=== PATIENT | female | born 1945 | race Hispanic/Latino ===

== ENCOUNTER 2018-12-27 01:29 | Emergency (ER) | payer MEDICARE ==
[2018-12-27 02:37] LABS: Bilirubin,Urine NEG (Negative); Color,Urine Colorless (Yellow)
[2018-12-27 02:38] LABS: Blood,Urine NEG (Negative); Protein,Urine <15 mg/dL mg/dL (Negative); Urobilinogen,Urine < 2.0 mg/dL (<2.0)
[2018-12-27] MEDS ORDERED: NACL 0.9% 500 ML 500 ML IV ONE (02:41)
--- NOTE | 2018-12-27 02:42 | Emergency Department Report ---
ED General Adult HPI - General Chief complaint: Chest Pain Stated complaint: CHEST PAIN Time Seen by Provider: 12/27/18 02:34 Source: patient, EMS (ems notes not available at time of chart dictation), RN notes reviewed, old records reviewed Mode of arrival: Ambulatory Limitations: No Limitations - History of Present Illness Initial comments: Primary care Dr.: Dr. Neela Vera Pulmonology: Dr. Bertrand This is a 73-year-old female, history of arthritis, chronic pain, COPD, on home oxygen, who is brought to the hospital by emergency medical services for resolved supraventricular tachycardia/atrial fibrillation, and hypotension, now resolved. The patient contacted 911 because she felt like her heart was racing, and felt generally weak. Apparently, in the field, patient was found to be in A. fib, with RVR, with a rate of approximately 150 bpm This resolved on its own. The patient has no complaints at this time. She denies headache, chest pain, abdominal pain. She has chronic shortness of breath. She denies focal extremity weakness or numbness. She denies urinary symptoms. She's not had A. fib in the past, as far she is recalled. She has chronic neck pain. This is not new, worsening or different. The patient reports that she feels thirsty. She reports that she feels like she is back to her baseline. 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 -: Sudden Severity scale (0 -10): 1 Consistency: now resolved Improves with: none Worsens with: none - Related Data Home Medications Medication Instructions Recorded Confirmed Last Taken Albuterol Sulfate [Albuterol 0.63%] 08/25/13 08/25/13 Unknown Aspirin [Aspirin BABY CHEW TAB] 81 mg PO QDAY 08/25/13 08/26/13 Unknown Escitalopram Oxalate [Lexapro] 20 mg PO QDAY 08/25/13 08/26/13 Unknown HYDROcodone/ACETAMINOPHEN 10 - 325 mg PO TID 08/25/13 08/26/13 Unknown [Hydrocodon-Acetamin 7.5-325/15] amLODIPine [Norvasc] 5 mg PO QDAY 08/25/13 08/26/13 Unknown Previous Rx's Medication Instructions Recorded Last Taken Type Prednisone 20 mg PO QDAY #7 tablet 09/02/13 Unknown Rx levoFLOXacin [Levaquin] 750 mg PO QDAY #7 tablet 09/02/13 Unknown Rx Aspirin [Aspirin TAB] 325 mg PO QDAY #30 tablet 12/27/18 Unknown Rx Potassium Chloride 20 meq PO BID #30 packet 12/27/18 Unknown Rx Allergies Allergy/AdvReac Type Severity Reaction Status Date / Time No Known Allergies Allergy Verified 08/25/13 22:49 ED Review of Systems ROS: Stated complaint: CHEST PAIN Other details as noted in HPI Constitutional: malaise. denies: fever Eyes: denies: eye discharge ENT: denies: epistaxis Respiratory: shortness of breath (chronic shortness of breath) Cardiovascular: palpitations Gastrointestinal: denies: vomiting Genitourinary: denies: dysuria Musculoskeletal: arthralgia (chronic) Neurological: weakness (now resolved) Psychiatric: anxiety ED Past Medical Hx - Past Medical History Previous Medical History?: Yes Hx Hypertension: Yes Hx COPD: Yes - Surgical History Past Surgical History?: No - Social History Smoking Status: Unknown if ever smoked - Medications Home Medications: Home Medications Medication Instructions Recorded Confirmed Last Taken Type Albuterol Sulfate [Albuterol 0.63%] 08/25/13 08/25/13 Unknown History Aspirin [Aspirin BABY CHEW TAB] 81 mg PO QDAY 08/25/13 08/26/13 Unknown History Escitalopram Oxalate [Lexapro] 20 mg PO QDAY 08/25/13 08/26/13 Unknown History HYDROcodone/ACETAMINOPHEN 10 - 325 mg PO TID 08/25/13 08/26/13 Unknown History [Hydrocodon-Acetamin 7.5-325/15] amLODIPine [Norvasc] 5 mg PO QDAY 08/25/13 08/26/13 Unknown History Prednisone 20 mg PO QDAY #7 tablet 09/02/13 Unknown Rx levoFLOXacin [Levaquin] 750 mg PO QDAY #7 tablet 09/02/13 Unknown Rx Aspirin [Aspirin TAB] 325 mg PO QDAY #30 tablet 12/27/18 Unknown Rx Potassium Chloride 20 meq PO BID #30 packet 12/27/18 Unknown Rx ED Physical Exam - General Limitations: No Limitations General appearance: alert, anxious - Head Head exam: Present: atraumatic, normocephalic - Eye Eye exam: Present: normal appearance, EOMI. Absent: nystagmus - ENT ENT exam: Present: normal exam, normal orophraynx, mucous membranes moist, normal external ear exam - Neck Neck exam: Present: normal inspection, full ROM. Absent: tenderness, m eningismus - Respiratory Respiratory exam: Present: normal lung sounds bilaterally. Absent: respiratory distress - Cardiovascular Cardiovascular Exam: Present: regular rate, normal rhythm, normal heart sounds. Absent: bradycardia, tachycardia, irregular rhythm, systolic murmur, diastolic murmur, rubs, gallop - GI/Abdominal GI/Abdominal exam: Present: soft. Absent: distended, tenderness, guarding, rebound, rigid, pulsatile mass - Extremities Exam Extremities exam: Present: normal inspection, full ROM, other (2+ pulses noted in the bilateral upper, lower extremities. Compartments soft. No long bony tenderness. The pelvis is stable.). Absent: calf tenderness - Back Exam Back exam: Present: normal inspection, full ROM. Absent: tenderness, CVA tenderness (R), paraspinal tenderness, vertebral tenderness - Neurological Exam Neurological exam: Present: alert, other (Extraocular movements intact. Tongue midline. No facial droop. Facial sensation intact to light touch in the V1, V2, V3 distribution bilaterally. 5 and 5 strength in 4 extremities.. Sensation is intact to light touch in 4 extremities.). Absent: motor sensory deficit - Psychiatric Psychiatric exam: Present: anxious - Skin Skin exam: Present: warm, dry, intact, normal color. Absent: rash ED Course Vital Signs 12/27/18 12/27/18 02:02 04:09 Temperature 99.1 F Pulse Rate 133 H 72 Respiratory 16 16 Rate Blood Pressure 97/62 121/65 [Right] O2 Sat by Pulse 93 93 Oximetry ED Medical Decision Making - Lab Data Result diagrams: 12/27/18 03:00 12/27/18 03:00 Vital Signs 12/27/18 12/27/18 02:02 04:09 Temperature 99.1 F Pulse Rate 133 H 72 Respiratory 16 16 Rate Blood Pressure 97/62 121/65 [Right] O2 Sat by Pulse 93 93 Oximetry Lab Results 12/27/18 12/27/18 12/27/18 Range/Units 02:20 03:00 03:00 WBC 6.1 (4.5-11.0) K/mm3 RBC 4.17 (3.65-5.03) M/mm3 Hgb 15.1 H (10.1-14.3) gm/dl Hct 42.7 (30.3-42.9) % MCV 102 H (79-97) fl MCH 36 H (28-32) pg MCHC 35 H (30-34) % RDW 12.3 L (13.2-15.2) % Plt Count 129 L (140-440) K/mm3 Sodium 142 (137-145) mmol/L Potassium 3.1 L (3.6-5.0) mmol/L Chloride 101.6 (98-107) mmol/L Carbon Dioxide 27 (22-30) mmol/L Anion Gap 17 mmol/L BUN 10 (7-17) mg/dL Creatinine 0.7 (0.7-1.2) mg/dL Estimated GFR > 60 ml/min BUN/Creatinine Ratio 14 % Glucose 94 (65-100) mg/dL Calcium 8.8 (8.4-10.2) mg/dL Magnesium 1.70 (1.7-2.3) mg/dL Total Creatine Kinase 71 (30-135) units/L TSH (0.270-4.200) mlU/mL Urine Color Colorless (Yellow) Urine Turbidity Clear (Clear) Urine pH 8.0 H (5.0-7.0) Ur Specific [place] 1.003 (1.003-1.030) Urine Protein <15 mg/dl (Negative) mg/dL Urine Glucose (UA) Neg (Negative) mg/dL Urine Ketones Neg (Negative) mg/dL Urine Blood Neg (Negative) Urine Nitrite Neg (Negative) Urine Bilirubin Neg (Negative) Urine Urobilinogen < 2.0 (<2.0) mg/dL Ur Leukocyte Esterase Neg (Negative) Urine WBC (Auto) 2.0 (0.0-6.0) /HPF Urine RBC (Auto) 3.0 (0.0-6.0) /HPF 12/27/18 Range/Units 03:00 WBC (4.5-11.0) K/mm3 RBC (3.65-5.03) M/mm3 Hgb (10.1-14.3) gm/dl Hct (30.3-42.9) % MCV (79-97) fl MCH (28-32) pg MCHC (30-34) % RDW (13.2-15.2) % Plt Count (140-440) K/mm3 Sodium (137-145) mmol/L Potassium (3.6-5.0) mmol/L Chloride (98-107) mmol/L Carbon Dioxide (22-30) mmol/L Anion Gap mmol/L BUN (7-17) mg/dL Creatinine (0.7-1.2) mg/dL Estimated GFR ml/min BUN/Creatinine Ratio % Glucose (65-100) mg/dL Calcium (8.4-10.2) mg/dL Magnesium (1.7-2.3) mg/dL Total Creatine Kinase (30-135) units/L TSH 4.520 H (0.270-4.200) mlU/mL Urine Color (Yellow) Urine Turbidity (Clear) Urine pH (5.0-7.0) Ur Specific [place] (1.003-1.030) Urine Protein (Negative) mg/dL Urine Glucose (UA) (Negative) mg/dL Urine Ketones (Negative) mg/dL Urine Blood (Negative) Urine Nitrite (Negative) Urine Bilirubin (Negative) Urine Urobilinogen (<2.0) mg/dL Ur Leukocyte Esterase (Negative) Urine WBC (Auto) (0.0-6.0) /HPF Urine RBC (Auto) (0.0-6.0) /HPF - EKG Data -: EKG Interpreted by Mi EKG shows normal: sinus rhythm Rate: normal - Radiology Data Radiology results: report reviewed, image reviewed X-ray of the chest is negative for acute disease. - Medical Decision Making Differential diagnosis, including not limited to: Paroxysmal A. fib, resolved A. fib, thyroid derangement, pneumonia, urinary tract infection, electrolyte derangement Assessment and plan: 73-year-old female with prehospital EKG showing A. fib with RVR, now resolved. Patient is observed in the emergency room for 3 hours, without clinical decompensation. She is currently afebrile, with reassuring vital signs, does not appear to be in any acute distress. TSH slightly elevated. Also found to be slightly hypokalemic. Patient currently in sinus rhythm. We will start her on aspirin. We will start her on potassium supplementation. 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 fib, presumably, as well as nonspecific thyroid abnormalities, and hypokalemia. The patient at this point time is hemodynamically stable, and currently has not manifested an acute medically emergent condition in the emergency room that requires hospitalization. Critical care attestation.: If time is entered above; I have spent that time in minutes in the direct care of this critically ill patient, excluding procedure time. ED Disposition Clinical Impression: History of atrial fibrillation, Hypokalemia Disposition: - TO HOME OR SELFCARE Is pt being admited?: No Does the pt Need Aspirin: No Condition: Stable Instructions: Atrial Fibrillation (ED) Additional Instructions: Continue current outpatient medications. Take the aspirin as directed. Take the potassium supplementation as directed. Follow up with any illicit cardiology specialists for presumed paroxysmal atrial fibrillation within the next 7-10 days. Follow-up with the primary care doctor or straw hat washer operator to have potassium rechecked within the next 2 weeks. Nonspecific thyroid abnormalities were noted today while in the emergency room, please have your primary care doctor contact the medical records department to obtain [facility] medical records, and further evaluate these. Please return to the emergency room right away with new pain, worsened pain, migration of pain, projectile vomiting, change in mental status, confusion, recurrent palpitations, weakness, lightheadedness, inability to tolerate liquid feeds. Referrals: KE HARTLEY MD [Primary Care Provider] - 3-5 Days NEELA VERA MD [Staff Physician] - 3-5 Days GARY BARAJAS MD [Staff Physician] - 3-5 Days JULIAN SHUKLA MD [Staff Physician] - 3-5 Days
--- NOTE | 2018-12-27 03:10 | XRay Report ---
PROCEDURE: XR CHEST 1V AP TECHNIQUE: A portable upright view the chest was obtained. HISTORY: copd a fib COMPARISONS: None FINDINGS: The lungs are hyperinflated. There are no infiltrates or effusions. The lungs are not congested. The heart size is normal. The bones reveal arthritic changes of the left AC joint. There is an anchor sut ure in the right humeral head. IMPRESSION: COPD. No acute process in the chest.. This document is electronically signed by Eron Cee MD., December 27 2018 03:08:36 AM ET
[2018-12-27 03:53] LABS: Red Blood Count 4.17 M/mm3 (3.65-5.03)
[2018-12-27 03:54] LABS: Hematocrit 42.7 % (30.3-42.9); Hemoglobin 15.1 gm/dl (10.1-14.3); Mean Corpuscular HGB Conc 35 % (30-34); Mean Corpuscular Volume 102 fl (79-97); Platelet Count 129 K/mm3 (140-440); Red Cell Distribution Width 12.3 % (13.2-15.2)
[2018-12-27 04:00] LABS: BUN/Creatinine Ratio 14; Blood Urea Nitrogen 10 mg/dL (7-17); Calcium 8.8 mg/dL (8.4-10.2); Hemolysis Index 7
[2018-12-27 04:41] VITALS: BP 121/65
[2018-12-27] MEDS ORDERED: K-DUR PO ONE (04:46)
[2018-12-27] MEDS ORDERED: KCL 10MEQ/100ML 10 MEQ/100 ML BAG IV SCH (05:00)
== END 2018-12-27 05:45 | disposition home or self-care (01) ==
LOC: ED 01:29
DX: E87.6 Hypokalemia (principal); I48.91 Unspecified atrial fibrillation; I10 Essential (primary) hypertension; J44.9 Chronic obstructive pulmonary disease, unspecified; Z79.82 Long term (current) use of aspirin
CPT/HCPCS: 36415; 71045; 80048; 81001; 82550; 83735; 84439; 84443; 85027; 93005; 93010; 99285

== ENCOUNTER 2019-05-28 11:36 | Inpatient (IN) | payer MEDICARE ==
[2019-05-28] MEDS ORDERED: IBUPROFEN 800 MG TAB PO ONE (12:54)
[2019-05-28] MEDS ORDERED: CEFEPIME/NS 2 GM/100 ML 2 GM/100 ML BAG IV ONE (12:54)
[2019-05-28 13:03] LABS: Basophils % (Auto) 0.3 % (0.0-1.8); Eosinophils # (Auto) 0.2 K/mm3 (0.0-0.4); Eosinophils % (Auto) 4.3 % (0.0-4.3); Hematocrit 33.7 % (30.3-42.9); Lymphocytes # (Auto) 0.5 K/mm3 (1.2-5.4); Lymphocytes % (Auto) 11.1 % (13.4-35.0); Mean Corpuscular HGB Conc 33 % (30-34); Mean Corpuscular Volume 105 fl (79-97); Monocytes # (Auto) 0.3 K/mm3 (0.0-0.8); Monocytes % (Auto) 6.6 % (0.0-7.3); Platelet Count 137 K/mm3 (140-440); Red Blood Count 3.22 M/mm3 (3.65-5.03); Red Cell Distribution Width 15.7 % (13.2-15.2)
[2019-05-28 13:04] LABS: Bilirubin,Urine NEG (Negative); Blood,Urine NEG (Negative); Color,Urine Yellow (Yellow); Protein,Urine <15 mg/dL mg/dL (Negative); Urobilinogen,Urine < 2.0 mg/dL (<2.0)
[2019-05-28] MEDS ORDERED: SODIUM CHLORIDE 0.9% 1000 ML IV SOLN IV ONE (13:05)
[2019-05-28 13:10] LABS: Amphetamine Screen,Urine PRESUMPTIVE NEGATIVE; Benzodiazepines Screen,Urine PRESUMPTIVE NEGATIVE; Cocaine Screen,Urine PRESUMPTIVE NEGATIVE; Methadone Screen,Urine PRESUMPTIVE NEGATIVE; Opiate Screen,Urine PRESUMPTIVE NEGATIVE
[2019-05-28 13:15] LABS: INR 1.04 (0.87-1.13)
[2019-05-28 13:17] LABS: Partial Thromboplastin Time 30.3 Sec. (24.2-36.6)
--- NOTE | 2019-05-28 13:19 | Emergency Department Report ---
ED Altered Mental Status HPI - General Chief Complaint: Altered Mental Status Stated Complaint: AMS Time Seen by Provider: 05/28/19 12:04 Source: EMS Mode of arrival: Ambulatory Limitations: Altered Mental Status - History of Present Illness Initial Comments: 73-year-old female with history of COPD presents to ED with altered mental status. Family told EMS patient has been laying in bed all day and became confused. Family reports recent hip replacement surgery. Patient is alert, oriented to self only. Does not know the answers to any questions. Patient has no complaints. There is no family present at this time. MD Complaint: altered mental status -: This morning Consistency of Symptoms: constant - Related Data Home Medications Medication Instructions Recorded Confirmed Last Taken Escitalopram Oxalate [Lexapro] 20 mg PO QDAY 08/25/13 05/28/19 Unknown HYDROcodone/ACETAMINOPHEN 10 - 325 mg PO TID 08/25/13 05/28/19 Unknown [Hydrocodon-Acetamin 7.5-325/15] Albuterol Sulfate 90 mcg INHALATION DAILY PRN 05/28/19 05/28/19 Unknown Metoprolol 25 mg PO BID 05/28/19 05/28/19 Unknown Mirtazapine 7.5 mg PO HS 05/28/19 05/28/19 Unknown Pravastatin Sodium 40 mg PO DAILY 05/28/19 05/28/19 Unknown QUEtiapine 25 mg PO HS 05/28/19 05/28/19 Unknown Ranitidine HCl 150 mg PO BID 05/28/19 05/28/19 Unknown RisperiDONE 2 mg PO BID 05/28/19 05/28/19 Unknown Spironolactone 25 mg PO BID 05/28/19 05/28/19 Unknown Previous Rx's Medication Instructions Recorded Last Taken Type Aspirin 325 mg PO QDAY #30 tablet 12/27/18 Unknown Rx Potassium Chloride 20 meq PO BID #30 packet 12/27/18 Unknown Rx Allergies Allergy/AdvReac Type Severity Reaction Status Date / Time No Known Allergies Allergy Verified 08/25/13 22:49 ED Review of Systems ROS: Stated complaint: AMS Other details as noted in HPI Comment: Unobtainable due to pts medical conditions ED Past Medical Hx - Past Medical History Hx Hypertension: Yes Hx COPD: Yes - Surgical History Past Surgical History?: Yes - Social History Smoking Status: Current Every Day Smoker - Medications Home Medications: Home Medications Medication Instructions Recorded Confirmed Last Taken Type Escitalopram Oxalate [Lexapro] 20 mg PO QDAY 08/25/13 05/28/19 Unknown History HYDROcodone/ACETAMINOPHEN 10 - 325 mg PO TID 08/25/13 05/28/19 Unknown History [Hydrocodon-Acetamin 7.5-325/15] Aspirin 325 mg PO QDAY #30 tablet 12/27/18 05/28/19 Unknown Rx Potassium Chloride 20 meq PO BID #30 packet 12/27/18 05/28/19 Unknown Rx Albuterol Sulfate 90 mcg INHALATION DAILY PRN 05/28/19 05/28/19 Unknown History Metoprolol 25 mg PO BID 05/28/19 05/28/19 Unknown History Mirtazapine 7.5 mg PO HS 05/28/19 05/28/19 Unknown History Pravastatin Sodium 40 mg PO DAILY 05/28/19 05/28/19 Unknown History QUEtiapine 25 mg PO HS 05/28/19 05/28/19 Unknown History Ranitidine HCl 150 mg PO BID 05/28/19 05/28/19 Unknown History RisperiDONE 2 mg PO BID 05/28/19 05/28/19 Unknown History Spironolactone 25 mg PO BID 05/28/19 05/28/19 Unknown History ED Physical Exam - General Limitations: Altered Mental Status General appearance: alert, in no apparent distress - Head Head exam: Present: atraumatic, normocephalic - Eye Eye exam: Present: normal appearance, PERRL, EOMI. Absent: scleral icterus, conjunctival injection - ENT ENT exam: Present: mucous membranes moist - Neck Neck exam: Present: normal inspection - Respiratory Respiratory exam: Present: normal lung sounds bilaterally. Absent: respiratory distress - Cardiovascular Cardiovascular Exam: Present: regular rate, normal rhythm - GI/Abdominal GI/Abdominal exam: Present: soft. Absent: distended, tenderness - Extremities Exam Extremities exam: Present: other (healed scar present left hip; bruising to anterior lower left leg; abrasion present anterior lower right leg) - Neurological Exam Neurological exam: Present: alert, other (moves all extremities, able to state her name and date, no slurred speech noted, no facial droop present). Absent: oriented X3 (oriented to self only) - Psychiatric Psychiatric exam: Present: normal affect, normal mood - Skin Skin exam: Present: warm, dry, intact, normal color ED Course Vital Signs 05/28/19 05/28/19 05/28/19 11:49 12:01 12:06 Temperature 100.7 F H Pulse Rate 77 76 78 Respiratory 13 19 20 Rate Blood Pressure 68/38 74/48 Blood Pressure [Left] O2 Sat by Pulse 97 97 Oximetry 05/28/19 05/28/19 05/28/19 12:09 12:15 12:30 Temperature Pulse Rate 76 77 Respiratory 20 20 17 Rate Blood Pressure 74/48 120/61 Blood Pressure [Left] O2 Sat by Pulse 98 98 Oximetry 05/28/19 05/28/19 13:18 15:11 Temperature 99 F Pulse Rate 76 Respiratory 16 Rate Blood Pressure Blood Pressure 119/51 [Left] O2 Sat by Pulse 100 Oximetry - Reevaluation(s) Reevaluation #1: 05/28/19 13:30 Spoke w/ son over the phone. States 3 months ago patient underwent hip replacement surgery. States her hospital stay was complicated by encephalopathy thought to be due to her anesthesia. Patient was in and out of the hospital and rehabilitation facilities afterward. Patient was discharged home 6 weeks ago. Son states patient has basically gotten back to normal, so the plan in which she was about to start back driving. However, he states yesterday patient reported that she just didn't feel well. This morning she had decreased responsiveness, fever, and was confused. He reports patient has a history of COPD and a type of dementia. Reevaluation #2: 05/28/19 14:18 Daughter at bedside. Reports pt has been diagnosed with Wernicke's encephalopathy, liver cirrhosis secondary to ETOH abuse. States patient has not complained of anything specifically. States pt woke up this AM and urinated on the bathroom floor. States pt's mental status is much better currently, she has been having conversation with her. Earlier today prior to EMS call, pt was not speaking. Pt is currently able to answer more questions and tells me that she is currently in the hospital. BP improving. - Lab Data Result diagrams: 05/28/19 12:34 05/28/19 12:34 Lab Results 05/28/19 05/28/19 05/28/19 Range/Units 12:34 12:34 12:34 WBC 4.8 (4.5-11.0) K/mm3 RBC 3.22 L (3.65-5.03) M/mm3 Hgb 11.0 (10.1-14.3) gm/dl Hct 33.7 (30.3-42.9) % MCV 105 H (79-97) fl MCH 34 H (28-32) pg MCHC 33 (30-34) % RDW 15.7 H (13.2-15.2) % Plt Count 137 L (140-440) K/mm3 Lymph % (Auto) 11.1 L (13.4-35.0) % Grand % (Auto) 6.6 (0.0-7.3) % Eos % (Auto) 4.3 (0.0-4.3) % Baso % (Auto) 0.3 (0.0-1.8) % Lymph # 0.5 L (1.2-5.4) K/mm3 Grand # 0.3 (0.0-0.8) K/mm3 Eos # 0.2 (0.0-0.4) K/mm3 Baso # 0.0 (0.0-0.1) K/mm3 Seg Neutrophils % 77.7 H (40.0-70.0) % Seg Neutrophils # 3.7 (1.8-7.7) K/mm3 PT 13.3 (12.2-14.9) Sec. INR 1.04 (0.87-1.13) APTT 30.3 (24.2-36.6) Sec. Sodium 142 (137-145) mmol/L Potassium 4.5 (3.6-5.0) mmol/L Chloride 113.1 H (98-107) mmol/L Carbon Dioxide 22 (22-30) mmol/L Anion Gap 11 mmol/L BUN 14 (7-17) mg/dL Creatinine 0.5 L (0.7-1.2) mg/dL Estimated GFR > 60 ml/min BUN/Creatinine Ratio 28 % Glucose 104 H (65-100) mg/dL Lactic Acid (0.7-2.0) mmol/L Calcium 7.3 L (8.4-10.2) mg/dL Total Bilirubin 0.50 (0.1-1.2) mg/dL AST 30 (5-40) units/L ALT 14 (7-56) units/L Alkaline Phosphatase 120 (35-129) units/L Ammonia (25-60) umol/L Troponin T (0.00-0.029) ng/mL Total Protein 5.5 L (6.3-8.2) g/dL Albumin 2.7 L (3.9-5) g/dL Albumin/Globulin Ratio 1.0 % Urine Color (Yellow) Urine Turbidity (Clear) Urine pH (5.0-7.0) Ur Specific [address] (1.003-1.030) Urine Protein (Negative) mg/dL Urine Glucose (UA) (Negative) mg/dL Urine Ketones (Negative) mg/dL Urine Blood (Negative) Urine Nitrite (Negative) Urine Bilirubin (Negative) Urine Urobilinogen (<2.0) mg/dL Ur Leukocyte Esterase (Negative) Urine WBC (Auto) (0.0-6.0) /HPF Urine RBC (Auto) (0.0-6.0) /HPF U Epithel Cells (Auto) (0-13.0) /HPF Salicylates (2.8-20.0) mg/dL Urine Opiates Screen Urine Methadone Screen Acetaminophen (10.0-30.0) ug/mL Ur Barbiturates Screen Ur Phencyclidine Scrn Ur Amphetamines Screen U Benzodiazepines Scrn Urine Cocaine Screen U Marijuana (THC) Screen Drugs of Abuse Note Plasma/Serum Alcohol (0-0.07) % 05/28/19 05/28/19 05/28/19 Range/Units 12:34 12:34 12:34 WBC (4.5-11.0) K/mm3 RBC (3.65-5.03) M/mm3 Hgb (10.1-14.3) gm/dl Hct (30.3-42.9) % MCV (79-97) fl MCH (28-32) pg MCHC (30-34) % RDW (13.2-15.2) % Plt Count (140-440) K/mm3 Lymph % (Auto) (13.4-35.0) % Grand % (Auto) (0.0-7.3) % Eos % (Auto) (0.0-4.3) % Baso % (Auto) (0.0-1.8) % Lymph # (1.2-5.4) K/mm3 Grand # (0.0-0.8) K/mm3 Eos # (0.0-0.4) K/mm3 Baso # (0.0-0.1) K/mm3 Seg Neutrophils % (40.0-70.0) % Seg Neutrophils # (1.8-7.7) K/mm3 PT (12.2-14.9) Sec. INR (0.87-1.13) APTT (24.2-36.6) Sec. Sodium (137-145) mmol/L Potassium (3.6-5.0) mmol/L Chloride (98-107) mmol/L Carbon Dioxide (22-30) mmol/L Anion Gap mmol/L BUN (7-17) mg/dL Creatinine (0.7-1.2) mg/dL Estimated GFR ml/min BUN/Creatinine Ratio % Glucose (65-100) mg/dL Lactic Acid 1.70 (0.7-2.0) mmol/L Calcium (8.4-10.2) mg/dL Total Bilirubin (0.1-1.2) mg/dL AST (5-40) units/L ALT (7-56) units/L Alkaline Phosphatase (35-129) units/L Ammonia 38.0 (25-60) umol/L Troponin T < 0.010 (0.00-0.029) ng/mL Total Protein (6.3-8.2) g/dL Albumin (3.9-5) g/dL Albumin/Globulin Ratio % Urine Color (Yellow) Urine Turbidity (Clear) Urine pH (5.0-7.0) Ur Specific [address] (1.003-1.030) Urine Protein (Negative) mg/dL Urine Glucose (UA) (Negative) mg/dL Urine Ketones (Negative) mg/dL Urine Blood (Negative) Urine Nitrite (Negative) Urine Bilirubin (Negative) Urine Urobilinogen (<2.0) mg/dL Ur Leukocyte Esterase (Negative) Urine WBC (Auto) (0.0-6.0) /HPF Urine RBC (Auto) (0.0-6.0) /HPF U Epithel Cells (Auto) (0-13.0) /HPF Salicylates (2.8-20.0) mg/dL Urine Opiates Screen Urine Methadone Screen Acetaminophen (10.0-30.0) ug/mL Ur Barbiturates Screen Ur Phencyclidine Scrn Ur Amphetamines Screen U Benzodiazepines Scrn Urine Cocaine Screen U Marijuana (THC) Screen Drugs of Abuse Note Plasma/Serum Alcohol (0-0.07) % 05/28/19 05/28/19 05/28/19 Range/Units 12:34 12:34 12:34 WBC (4.5-11.0) K/mm3 RBC (3.65-5.03) M/mm3 Hgb (10.1-14.3) gm/dl Hct (30.3-42.9) % MCV (79-97) fl MCH (28-32) pg MCHC (30-34) % RDW (13.2-15.2) % Plt Count (140-440) K/mm3 Lymph % (Auto) (13.4-35.0) % Grand % (Auto) (0.0-7.3) % Eos % (Auto) (0.0-4.3) % Baso % (Auto) (0.0-1.8) % Lymph # (1.2-5.4) K/mm3 Grand # (0.0-0.8) K/mm3 Eos # (0.0-0.4) K/mm3 Baso # (0.0-0.1) K/mm3 Seg Neutrophils % (40.0-70.0) % Seg Neutrophils # (1.8-7.7) K/mm3 PT (12.2-14.9) Sec. INR (0.87-1.13) APTT (24.2-36.6) Sec. Sodium (137-145) mmol/L Potassium (3.6-5.0) mmol/L Chloride (98-107) mmol/L Carbon Dioxide (22-30) mmol/L Anion Gap mmol/L BUN (7-17) mg/dL Creatinine (0.7-1.2) mg/dL Estimated GFR ml/min BUN/Creatinine Ratio % Glucose (65-100) mg/dL Lactic Acid (0.7-2.0) mmol/L Calcium (8.4-10.2) mg/dL Total Bilirubin (0.1-1.2) mg/dL AST (5-40) units/L ALT (7-56) units/L Alkaline Phosphatase (35-129) units/L Ammonia (25-60) umol/L Troponin T (0.00-0.029) ng/mL Total Protein (6.3-8.2) g/dL Albumin (3.9-5) g/dL Albumin/Globulin Ratio % Urine Color (Yellow) Urine Turbidity (Clear) Urine pH (5.0-7.0) Ur Specific [address] (1.003-1.030) Urine Protein (Negative) mg/dL Urine Glucose (UA) (Negative) mg/dL Urine Ketones (Negative) mg/dL Urine Blood (Negative) Urine Nitrite (Negative) Urine Bilirubin (Negative) Urine Urobilinogen (<2.0) mg/dL Ur Leukocyte Esterase (Negative) Urine WBC (Auto) (0.0-6.0) /HPF Urine RBC (Auto) (0.0-6.0) /HPF U Epithel Cells (Auto) (0-13.0) /HPF Salicylates < 0.3 L (2.8-20.0) mg/dL Urine Opiates Screen Urine Methadone Screen Acetaminophen < 5.0 L (10.0-30.0) ug/mL Ur Barbiturates Screen Ur Phencyclidine Scrn Ur Amphetamines Screen U Benzodiazepines Scrn Urine Cocaine Screen U Marijuana (THC) Screen Drugs of Abuse Note Plasma/Serum Alcohol < 0.01 (0-0.07) % 05/28/19 05/28/19 Range/Units 12:40 12:40 WBC (4.5-11.0) K/mm3 RBC (3.65-5.03) M/mm3 Hgb (10.1-14.3) gm/dl Hct (30.3-42.9) % MCV (79-97) fl MCH (28-32) pg MCHC (30-34) % RDW (13.2-15.2) % Plt Count (140-440) K/mm3 Lymph % (Auto) (13.4-35.0) % Grand % (Auto) (0.0-7.3) % Eos % (Auto) (0.0-4.3) % Baso % (Auto) (0.0-1.8) % Lymph # (1.2-5.4) K/mm3 Grand # (0.0-0.8) K/mm3 Eos # (0.0-0.4) K/mm3 Baso # (0.0-0.1) K/mm3 Seg Neutrophils % (40.0-70.0) % Seg Neutrophils # (1.8-7.7) K/mm3 PT (12.2-14.9) Sec. INR (0.87-1.13) APTT (24.2-36.6) Sec. Sodium (137-145) mmol/L Potassium (3.6-5.0) mmol/L Chloride (98-107) mmol/L Carbon Dioxide (22-30) mmol/L Anion Gap mmol/L BUN (7-17) mg/dL Creatinine (0.7-1.2) mg/dL Estimated GFR ml/min BUN/Creatinine Ratio % Glucose (65-100) mg/dL Lactic Acid (0.7-2.0) mmol/L Calcium (8.4-10.2) mg/dL Total Bilirubin (0.1-1.2) mg/dL AST (5-40) units/L ALT (7-56) units/L Alkaline Phosphatase (35-129) units/L Ammonia (25-60) umol/L Troponin T (0.00-0.029) ng/mL Total Protein (6.3-8.2) g/dL Albumin (3.9-5) g/dL Albumin/Globulin Ratio % Urine Color Yellow (Yellow) Urine Turbidity Clear (Clear) Urine pH 8.0 H (5.0-7.0) Ur Specific [address] 1.013 (1.003-1.030) Urine Protein <15 mg/dl (Negative) mg/dL Urine Glucose (UA) Neg (Negative) mg/dL Urine Ketones Neg (Negative) mg/dL Urine Blood Neg (Negative) Urine Nitrite Neg (Negative) Urine Bilirubin Neg (Negative) Urine Urobilinogen < 2.0 (<2.0) mg/dL Ur Leukocyte Esterase Neg (Negative) Urine WBC (Auto) 2.0 (0.0-6.0) /HPF Urine RBC (Auto) 4.0 (0.0-6.0) /HPF U Epithel Cells (Auto) < 1.0 (0-13.0) /HPF Salicylates (2.8-20.0) mg/dL Urine Opiates Screen Presumptive negative Urine Methadone Screen Presumptive negative Acetaminophen (10.0-30.0) ug/mL Ur Barbiturates Screen Presumptive negative Ur Phencyclidine Scrn Presumptive negative Ur Amphetamines Screen Presumptive negative U Benzodiazepines Scrn Presumptive negative Urine Cocaine Screen Presumptive negative U Marijuana (THC) Screen Presumptive positive Drugs of Abuse Note Disclamer Plasma/Serum Alcohol (0-0.07) % - EKG Data -: EKG Interpreted by Me EKG shows normal: sinus rhythm, axis, intervals, QRS complexes, ST-T waves Rate: normal Interpretation: no acute changes - Radiology Data Radiology results: report reviewed, image reviewed - Medical Decision Making 73-year-old female with history of COPD, Wernicke encephalopathy, alcoholic liver cirrhosis presents to ED with fever and altered mental status. Patient was initially hypotensive, with BP is 68/38. Patient also had a low-grade fever of 100.7. Sepsis alert was called. Blood cultures drawn, cefepime given, IV fluids administered. Systolic BP currently in the 120s. Her mental status has improved, patient has more conversational and able to answer more questions appropriately. CT head is negative, chest x-ray is normal, UA is normal. Lactic acid is normal, ammonia level is normal. CO2 normal on ABG. Remainder of labs are also unremarkable. EKG is normal. Will admit to hospitalist, Dr Anderson, for further management. - Differential Diagnosis UTI, pneumonia, CO2 retention, hepatic encephalopathy, sepsis Critical Care Time: Yes Critical care time in (mins) excluding proc time.: 35 Critical care attestation.: If time is entered above; I have spent that time in minutes in the direct care of this critically ill patient, excluding procedure time. Critical Care Time: 35 minutes ED Disposition Clinical Impression: SIRS (systemic inflammatory response syndrome), Encephalopathy acute, Hypotension Disposition: OP ADMIT IP TO THIS HOSP Is pt being admited?: Yes Condition: Stable Referrals: ALBARO ARREDONDO [Primary Care Provider] - 3-5 Days Time of Disposition: 14:22
[2019-05-28 13:21] LABS: Alanine Aminotransferase 14 units/L (7-56); Albumin 2.7 g/dL (3.9-5); BUN/Creatinine Ratio 28; Blood Urea Nitrogen 14 mg/dL (7-17); Calcium 7.3 mg/dL (8.4-10.2); Hemolysis Index 10
--- NOTE | 2019-05-28 13:27 | Cat Scan Report ---
CT HEAD WITHOUT CONTRAST INDICATION / CLINICAL INFORMATION: ams. TECHNIQUE: All CT scans at this location are performed using CT dose reduction for ALARA by means of automated e xposure control. COMPARISON: None available. FINDINGS: HEMORRHAGE: No evidence of intracranial hemorrhage or extra-axial fluid collection. EXTRA-AXIAL SPACES: Cortical sulci and sylvian fissures are enlarged reflecting a degree of parenchym al volume loss which is within normal limits for the patient's age. Basilar cisterns have an unremark able appearance. VENTRICULAR SYSTEM: The third and lateral ventricles are enlarged reflecting resonance of age related parenchymal volume loss. CEREBRAL PARENCHYMA: Periventricular and deep white matter lucency is observed. This is probably seco ndary to microvascular ischemic change. There is no indication of recent infarction. No areas of ence phalomalacia are identified. MIDLINE SHIFT OR HERNIATION: There is no mass effect. CEREBELLUM / BRAINSTEM: Brainstem and cerebellum have an unremarkable appearance. INTRACRANIAL VESSELS: No abnormalities identified on noncontrast head CT. ORBITS: visualized portions of the orbits have an unremarkable appearance. SOFT TISSUES of HEAD: No significant abnormality. CALVARIUM: Evaluation of bone windows reveals no abnormalities. PARANASAL SINUSES / MASTOID AIR CELLS: Paranasal sinuses are free from inflammatory mucosal disease. Mastoid air cells are normally pneumatized. IMPRESSION: 1. Mild age-related involutional changes of parenchymal volume loss and microvascular ischemia. 2. No acute intracranial abnormality. Signer Name: Jessee Yanez MD Signed: 05/28/2019 1:23 PM Workstation Name: [id number]
[2019-05-28 13:30] LABS: Cannabinoid Screen,Urine PRESUMPTIVE POSITIVE
--- NOTE | 2019-05-28 14:07 | XRay Report ---
CHEST 1 VIEW 05/28/2019 12:15 PM INDICATION / CLINICAL INFORMATION: ams. COMPARISON: One view of the chest from 04/28/2019. FINDINGS: SUPPORT DEVICES: None. HEART / MEDIASTINUM: No significant abnormality. LUNGS / PLEURA: No significant pulmonary or pleural abnormality. No pneumothorax. ADDITIONAL FINDINGS: No significant additional findings. IMPRESSION: 1. No acute abnormality of the chest. Signer Name: Darryl Denney MD Signed: 05/28/2019 2:03 PM Workstation Name: [id number]
[2019-05-28] MEDS ORDERED: SODIUM CHLORIDE 0.9% 1000 ML 1,000 ML IV ONE (14:18)
--- NOTE | 2019-05-28 15:37 | History and Physical Report ---
History of Present Illness Date of examination: 05/28/19 Date of admission: 05/28/19 Chief complaint: Altered sensorium for 1 day History of present illness: 73-year-old female with history of encephalopathy and recent left total hip arthroplasty discharged recently. Patient was admitted in late February and discharged on May 02 after rehabilitation for left hip arthroplasty. During the hospital stay patient had severe confusion and Wernivke's encepha lopathy. Patient has been drinking moderately cardiovascular system regularly till February Last week. Patient is confused with altered sensorium since yesterday. Patient was hypotensive in the emergency room. No fever or chills. No shortness of breath. Patient on lactulose to prevent hepatic encephalopathy. No recent travel Past Medical History Hypertension: Yes COPD: Yes Etoh dependence. Surgical History Past Surgical History?: Yes Social History Smoking Status: Current Every Day Smoker Family History Htn Medications Home Medications: Home Medications Medication Instructions Recorded Confirmed Last Taken Type Escitalopram Oxalate [Lexapro] 20 mg PO QDAY 08/25/13 05/28/19 Unknown History HYDROcodone/ACETAMINOPHEN 10 - 325 mg PO TID 08/25/13 05/28/19 Unknown History [Hydrocodon-Acetamin 7.5-325/15] Aspirin 325 mg PO QDAY #30 tablet 12/27/18 05/28/19 Unknown Rx Potassium Chloride 20 meq PO BID #30 packet 12/27/18 05/28/19 Unknown Rx Albuterol Sulfate 90 mcg INHALATION DAILY PRN 05/28/19 05/28/19 Unknown History Metoprolol 25 mg PO BID 05/28/19 05/28/19 Unknown History Mirtazapine 7.5 mg PO HS 05/28/19 05/28/19 Unknown History Pravastatin Sodium 40 mg PO DAILY 05/28/19 05/28/19 Unknown History QUEtiapine 25 mg PO HS 05/28/19 05/28/19 Unknown History Ranitidine HCl 150 mg PO BID 05/28/19 05/28/19 Unknown History RisperiDONE 2 mg PO BID 05/28/19 05/28/19 Unknown History Spironolactone 25 mg PO BID 05/28/19 05/28/19 Unknown History Review of Systems ROS: Stated complaint: AMS Other details as noted in HPI Hypotensive in the emergency room Comment: Unobtainable due to pts medical conditions Medications and Allergies Allergies Allergy/AdvReac Type Severity Reaction Status Date / Time No Known Allergies Allergy Verified 08/25/13 22:49 Home Medications Medication Instructions Recorded Confirmed Last Taken Type Escitalopram Oxalate [Lexapro] 20 mg PO QDAY 08/25/13 05/28/19 Unknown History Aspirin 325 mg PO QDAY #30 tablet 12/27/18 05/28/19 Unknown Rx Potassium Chloride 20 meq PO BID #30 packet 12/27/18 05/28/19 Unknown Rx Albuterol Sulfate 90 mcg INHALATION DAILY PRN 05/28/19 05/28/19 Unknown History Furosemide [Lasix TAB] 40 mg PO BID 05/28/19 05/28/19 Unknown History Iron Fum,Ps/Folic/Bcomp,C No.9 1 each PO BID 05/28/19 05/28/19 1 Day Ago History [Folivane-Plus Capsule] ~05/27/19 Metoprolol 25 mg PO BID 05/28/19 05/28/19 Unknown History Mirtazapine 7.5 mg PO HS 05/28/19 05/28/19 Unknown History Pravastatin Sodium 40 mg PO DAILY 05/28/19 05/28/19 Unknown History QUEtiapine 25 mg PO HS 05/28/19 05/28/19 Unknown History Ranitidine HCl 150 mg PO BID 05/28/19 05/28/19 Unknown History RisperiDONE 2 mg PO BID 05/28/19 05/28/19 Unknown History Spironolactone 25 mg PO BID 05/28/19 05/28/19 Unknown History Umeclidinium Brm/Vilanterol Tr 1 each IH BID 05/28/19 05/28/19 1 Day Ago History [Anoro Ellipta 62.5-25 Mcg INH] ~05/27/19 Exam - Constitutional Vitals: Temp Pulse Resp BP Pulse Ox 99 F 76 16 119/51 100 05/28/19 13:18 05/28/19 15:11 05/28/19 15:11 05/28/19 15:11 05/28/19 15:11 General appearance: Present: no acute distress, well-nourished - EENT Eyes: Present: PERRL ENT: hearing intact, clear oral mucosa - Neck Neck: Present: supple, normal ROM - Respiratory Respiratory effort: normal Respiratory: bilateral: CTA - Cardiovascular Heart rate: 86 Rhythm: regular Heart Sounds: Present: S1 & S2. Absent: rub, click - Extremities Extremities: no ischemia, pulses intact, pulses symmetrical, No edema Peripheral Pulses: within normal limits - Abdominal General gastrointestinal: Present: soft, non-tender, distended (slightly distended), normal bowel sounds Female genitourinary: Present: normal - Integumentary Integumentary: Present: clear, warm, dry - Musculoskeletal Musculoskeletal: generalized weakness - Psychiatric Psychiatric: other (confused and lethargic) - Neurologic Neurologic: CNII-XII intact, moves all extremities - Allied Health Allied health notes reviewed: nursing, case management Results - Labs CBC & Chem 7: 05/28/19 12:34 05/28/19 12:34 Labs: Laboratory Last Values WBC 4.8 K/mm3 (4.5-11.0) 05/28/19 12:34 RBC 3.22 M/mm3 (3.65-5.03) L 05/28/19 12:34 Hgb 11.0 gm/dl (10.1-14.3) 05/28/19 12:34 Hct 33.7 % (30.3-42.9) 05/28/19 12:34 MCV 105 fl (79-97) H 05/28/19 12:34 MCH 34 pg (28-32) H 05/28/19 12:34 MCHC 33 % (30-34) 05/28/19 12:34 RDW 15.7 % (13.2-15.2) H 05/28/19 12:34 Plt Count 137 K/mm3 (140-440) L 05/28/19 12:34 Lymph % (Auto) 11.1 % (13.4-35.0) L 05/28/19 12:34 Patrick % (Auto) 6.6 % (0.0-7.3) 05/28/19 12:34 Eos % (Auto) 4.3 % (0.0-4.3) 05/28/19 12:34 Baso % (Auto) 0.3 % (0.0-1.8) 05/28/19 12:34 Lymph # 0.5 K/mm3 (1.2-5.4) L 05/28/19 12:34 Patrick # 0.3 K/mm3 (0.0-0.8) 05/28/19 12:34 Eos # 0.2 K/mm3 (0.0-0.4) 05/28/19 12:34 Baso # 0.0 K/mm3 (0.0-0.1) 05/28/19 12:34 Seg Neutrophils % 77.7 % (40.0-70.0) H 05/28/19 12:34 Seg Neutrophils # 3.7 K/mm3 (1.8-7.7) 05/28/19 12:34 PT 13.3 Sec. (12.2-14.9) 05/28/19 12:34 INR 1.04 (0.87-1.13) 05/28/19 12:34 APTT 30.3 Sec. (24.2-36.6) 05/28/19 12:34 Sodium 142 mmol/L (137-145) 05/28/19 12:34 Potassium 4.5 mmol/L (3.6-5.0) 05/28/19 12:34 Chloride 113.1 mmol/L (98-107) H 05/28/19 12:34 Carbon Dioxide 22 mmol/L (22-30) 05/28/19 12:34 11 mmol/L 05/28/19 12:34 BUN 14 mg/dL (7-17) 05/28/19 12:34 0.5 mg/dL (0.7-1.2) L 05/28/19 12:34 Estimated GFR > 60 ml/min 05/28/19 12:34 28 % 05/28/19 12:34 Glucose 104 mg/dL (65-100) H 05/28/19 12:34 Lactic Acid 1.70 mmol/L (0.7-2.0) 05/28/19 12:34 Calcium 7.3 mg/dL (8.4-10.2) L 05/28/19 12:34 0.50 mg/dL (0.1-1.2) 05/28/19 12:34 AST 30 units/L (5-40) 05/28/19 12:34 ALT 14 units/L (7-56) 05/28/19 12:34 120 units/L (35-129) 05/28/19 12:34 38.0 umol/L (25-60) 05/28/19 12:34 < 0.010 ng/mL (0.00-0.029) 05/28/19 12:34 5.5 g/dL (6.3-8.2) L 05/28/19 12:34 2.7 g/dL (3.9-5) L 05/28/19 12:34 1.0 % 05/28/19 12:34 Yellow (Yellow) 05/28/19 12:40 Clear (Clear) 05/28/19 12:40 8.0 (5.0-7.0) H 05/28/19 12:40 Ur Specific [place] 1.013 (1.003-1.030) 05/28/19 12:40 <15 mg/dl mg/dL (Negative) 05/28/19 12:40 Neg mg/dL (Negative) 05/28/19 12:40 Neg mg/dL (Negative) 05/28/19 12:40 Neg (Negative) 05/28/19 12:40 Neg (Negative) 05/28/19 12:40 Neg (Negative) 05/28/19 12:40 < 2.0 mg/dL (<2.0) 05/28/19 12:40 Ur Leukocyte Esterase Neg (Negative) 05/28/19 12:40 2.0 /HPF (0.0-6.0) 05/28/19 12:40 4.0 /HPF (0.0-6.0) 05/28/19 12:40 U Epithel Cells (Auto) < 1.0 /HPF (0-13.0) 05/28/19 12:40 Salicylates < 0.3 mg/dL (2.8-20.0) L 05/28/19 12:34 Presumptive negative 05/28/19 12:40 Presumptive negative 05/28/19 12:40 Acetaminophen < 5.0 ug/mL (10.0-30.0) L 05/28/19 12:34 Ur Barbiturates Screen Presumptive negative 05/28/19 12:40 Ur Phencyclidine Scrn Presumptive negative 05/28/19 12:40 Ur Amphetamines Screen Presumptive negative 05/28/19 12:40 U Benzodiazepines Scrn Presumptive negative 05/28/19 12:40 Presumptive negative 05/28/19 12:40 U Marijuana (THC) Screen Presumptive positive 05/28/19 12:40 Disclamer 05/28/19 12:40 Plasma/Serum Alcohol < 0.01 % (0-0.07) 05/28/19 12:34 Short CBC 05/28/19 Range/Units 12:34 WBC 4.8 (4.5-11.0) K/mm3 Hgb 11.0 (10.1-14.3) gm/dl Hct 33.7 (30.3-42.9) % Plt Count 137 L (140-440) K/mm3 BMP 05/28/19 12:34 Sodium 142 Potassium 4.5 Chloride 113.1 H Carbon Dioxide 22 BUN 14 Creatinine 0.5 L Glucose 104 H Calcium 7.3 L Cardiac Enzymes 05/28/19 Range/Units 12:34 Troponin T < 0.010 (0.00-0.029) ng/mL Liver Function 05/28/19 Range/Units 12:34 Total Bilirubin 0.50 (0.1-1.2) mg/dL AST 30 (5-40) units/L ALT 14 (7-56) units/L Alkaline Phosphatase 120 (35-129) units/L Albumin 2.7 L (3.9-5) g/dL Urine 05/28/19 Range/Units 12:40 Urine Color Yellow (Yellow) Urine pH 8.0 H (5.0-7.0) Ur Specific [place] 1.013 (1.003-1.030) Urine Protein <15 mg/dl (Negative) mg/dL Urine Glucose (UA) Neg (Negative) mg/dL - Imaging and Cardiology EKG: report reviewed (normal sinus rhythm:HR of 75/min) Chest x-ray: report reviewed (No acute findings) Imaging and Cardiology: CT head Mild age-related involutional changes of parenchymal volumes loss and microvascular ischemia No acute intracranial abnormality Assessment and Plan Advance Directives: Yes (full code) VTE prophylaxis?: Chemical Plan of care discussed with patient/family: Yes - Patient Problems (1) Encephalopathy acute Current Visit: Yes Status: Acute Plan to address problem: Secondary to her Hepatic failure Check ammonia level Patient on lactulose Continue lactulose (2) Hypotension Current Visit: Yes Status: Acute Plan to address problem: Continue IV fluids and dopamine if necessary (3) EtOH dependence Current Visit: Yes Status: Acute Qualifiers: Substance use status: uncomplicated Qualified Code(s): F10.20 - Alcohol dependence, uncomplicated Plan to address problem: Patient off alcohol for the last 4 for 6 weeks. Patient was treated for delirium tremens/Wernicke's encephalopathy. CIWA protocol initiated (4) Hepatic failure Current Visit: Yes Status: Chronic Qualifiers: Liver failure chronicity: subacute Plan to address problem: Continue lactulose twice a day (5) Hypocalcemia Current Visit: Yes Status: Acute Plan to address problem: Patient started on Caltrate twice a day (6) Malnutrition Current Visit: Yes Status: Acute Qualifiers: Protein-calorie malnutrition severity: moderate Plan to address problem: Dietitian consult (7) Bipolar 1 disorder Current Visit: Yes Status: Chronic Plan to address problem: Cont seroquel (8) DVT prophylaxis Current Visit: No Status: Acute Plan to address problem: On SCD's and GI prophylaxis
[2019-05-28] MEDS ORDERED: ACETAMINOPHEN 325 MG TAB PO PRN (21:55)
[2019-05-28] MEDS ORDERED: ALBUTEROL 2.5 MG/3 ML NEBU IH PRN (21:55)
[2019-05-28] MEDS ORDERED: ONDANSETRON 4 MG/2 ML INJ IV PRN (21:55)
[2019-05-28] MEDS ORDERED: LORazepam 2 MG/ML VIAL IV PRN (21:59)
[2019-05-28] MEDS ORDERED: RANITIDINE HCL 150 MG PO SCH (22:00)
[2019-05-28] MEDS ORDERED: RISPERIDONE 2 MG PO SCH (22:00)
[2019-05-28] MEDS ORDERED: MIRTAZAPINE 7.5 MG PO SCH (22:00)
[2019-05-28] MEDS ORDERED: MIRTAZAPINE 15 MG TAB PO SCH (22:00)
[2019-05-28] MEDS: DOCUSATE SODIUM 100 MG CAP PO SCH (22:49)
[2019-05-28] MEDS: FAMOTIDINE 20 MG TAB PO SCH (22:49)
[2019-05-28] MEDS: SODIUM CHLORIDE 0.9% 1000 ML 1,000 ML IV SCH (22:50)
[2019-05-28] MEDS: risperiDONE 1 MG TAB PO SCH (22:50)
[2019-05-29] MEDS: IPRATROPIUM/ALBUTEROL SULFATE 3 ML AMPUL.NEB IH SCH ×3 (03:44→13:09)
[2019-05-29] MEDS ORDERED: BUDESONIDE 0.5 MG/2 ML NEBU IH SCH (08:00)
[2019-05-29] MEDS: risperiDONE 1 MG TAB PO SCH (09:43)
[2019-05-29] MEDS: DOCUSATE SODIUM 100 MG CAP PO SCH (09:44)
[2019-05-29] MEDS: FAMOTIDINE 20 MG TAB PO SCH (09:44)
[2019-05-29] MEDS ORDERED: ESCITALOPRAM 10 MG TAB PO SCH (10:00)
[2019-05-29] MEDS ORDERED: FOLIC ACID 1 MG TAB PO SCH (10:00)
[2019-05-29] MEDS ORDERED: NON-FORMULARY EACH (Escitalopram Oxalate [Lexapro] 20 MG) PO SCH (10:00)
[2019-05-29] MEDS ORDERED: PRAVASTATIN SODIUM 40 MG PO SCH (10:00)
[2019-05-29] MEDS ORDERED: NICOTINE 14 MG/24 HR PATCH TD SCH (10:00)
[2019-05-29] MEDS ORDERED: THIAMINE 100 MG TAB PO SCH (10:00)
[2019-05-29] MEDS ORDERED: PRAVASTATIN 40 MG TAB PO SCH (10:00)
[2019-05-29] MEDS ORDERED: ASPIRIN 325 MG TAB PO SCH (10:00)
[2019-05-29 10:19] VITALS: BP 121/64
[2019-05-29] MEDS: SODIUM CHLORIDE 0.9% 1000 ML 1,000 ML IV SCH (11:01)
[2019-05-29] MEDS ORDERED: PNEUMOCOCCAL 23 Valent 0.5 ML VIAL IM ONE (12:00)
--- NOTE | 2019-05-29 12:35 | Discharge Summary ---
Providers - Providers Date of Admission: 05/28/19 14:57 Date of discharge: 05/29/19 Attending physician: SHELL MONTERO 05/28/19 16:46 Consult to Dietitian/Nutrition [CONS] Routine Physician Instructions: Reason For Exam: Reason for Consult: Poor oral intake Primary care physician: ALBARO ARREDONDO Hospitalization Condition: Good Hospital course: Patient 73-year-old with history of hepatic encephalopathy presented to the ED with chief complaint of altered mental status. Workup negative. Ammonia negative CTA it just showed volume loss. Patient was alert and oriented back to baseline daughter at bedside. Patient is alert no cognitive problems at all. No hip pain. Patient stable for transfer home. Had hypotension was most likely etiology. Encouraged to increase by mouth intake for malnutrition. Dietitian consult outpatient. Disposition: TO HOME OR SELFCARE - Discharge Diagnoses (1) Encephalopathy acute Status: Acute (2) EtOH dependence Status: Acute Qualifiers: Substance use status: uncomplicated Qualified Code(s): F10.20 - Alcohol dependence, uncomplicated (3) Hypotension Status: Acute (4) Malnutrition Status: Acute Qualifiers: Protein-calorie malnutrition severity: moderate (5) Bipolar 1 disorder Status: Chronic (6) Anxiety Status: Acute Core Measure Documentation - Palliative Care Palliative Care/ Comfort Measures: Not Applicable - Core Measures Any of the following diagnoses?: none Exam - Constitutional Vitals: Temp Pulse Resp BP Pulse Ox 98.0 F 62 18 121/64 99 05/29/19 08:15 05/29/19 10:45 05/29/19 08:21 05/29/19 08:15 05/29/19 08:21 General appearance: Present: no acute distress, well-nourished - EENT Eyes: Present: PERRL ENT: hearing intact, clear oral mucosa - Neck Neck: Present: supple, normal ROM - Respiratory Respiratory effort: normal Respiratory: bilateral: CTA - Cardiovascular Heart Sounds: Present: S1 & S2. Absent: rub, click - Extremities Extremities: pulses symmetrical, No edema Peripheral Pulses: within normal limits - Abdominal General gastrointestinal: Present: soft, non-tender, non-distended, normal bowel sounds Female genitourinary: Present: normal - Integumentary Integumentary: Present: clear, warm, dry - Musculoskeletal Musculoskeletal: gait normal, strength equal bilaterally - Psychiatric Psychiatric: appropriate mood/affect, intact judgment & insight - Neurologic Neurologic: CNII-XII intact, moves all extremities Plan Activity: fall precautions Weight Bearing Status: Weight Bear as Tolerated Diet: low salt Special Instructions: other (etoh cessation) Follow up with: ALBARO ARREDONDO [Primary Care Provider] - 3-5 Days
== END 2019-05-29 13:28 | disposition home or self-care (01) | DRG 315 ==
LOC: ED 11:36 → 4A 14:57
PROVIDERS: ADMIT Internal Medicine; ATTEND Internal Medicine
PROC: 4A033R1 Measurement of Arterial Saturation, Peripheral, Percutaneous Approach (ICD-10-PCS; 2019-05-28)
PROC: 3E0234Z Introduction of Serum, Toxoid and Vaccine into Muscle, Percutaneous Approach (ICD-10-PCS; principal; 2019-05-29)
DX: I95.9 Hypotension, unspecified (principal); R65.10 Systemic inflammatory response syndrome (SIRS) of non-infectious origin without acute organ dysfunction; E44.0 Moderate protein-calorie malnutrition; G93.40 Encephalopathy, unspecified; F10.20 Alcohol dependence, uncomplicated; Z96.642 Presence of left artificial hip joint; Y90.9 Presence of alcohol in blood, level not specified; E83.51 Hypocalcemia; F31.9 Bipolar disorder, unspecified; F41.9 Anxiety disorder, unspecified; I10 Essential (primary) hypertension; F17.210 Nicotine dependence, cigarettes, uncomplicated; J44.9 Chronic obstructive pulmonary disease, unspecified; Z68.24 Body mass index [BMI] 24.0-24.9, adult; Z79.899 Other long term (current) drug therapy; Z23 Encounter for immunization; Z71.6 Tobacco abuse counseling
CPT/HCPCS: 36415; 70450; 71045; 80053; 80307; 80320; 81001; 82140; 82803; 84484; 85025; 85610; 85730; 87040; 87076; 87086; 87186; 90732; 93005; 93010; 94640; 94760; 96365; 96375; 99406; G0378; A9270-GY; G0480; J0692; J7030